=== PATIENT | female | born 1980 | race Caucasian/White ===

== ENCOUNTER 2017-04-13 16:58 | Emergency (ER) | payer SELFPAY ==
[~2017-04-13] VITALS: Ht 185.4 cm; Wt 83.9 kg
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
--- NOTE | ~2017-04-13 | CR230 ---
[facility] A Service of [facility] & [facility] RADIOLOGY TEXT RESULTS PATIENT: HE ERWIN LOCATION: [facility] : 84 UNIT #: [id number] AGE: [address]: Lani Hull SEX: F ORDER DR: [id number] [facility] [address] [place], [place] [address] [id number] E MR#: [id number] Acc #: [id number] NAME: HE ERWIN. : 1980 SEX: F STUDY DATE/TIME: 04/13/2017 17:58 UNIT: [facility] ROOM: STUDY DESCRIPTION: CR Shoulder Min 2 View Rt Attending Physician: Lani Hull P.A.-C. Ordering Physician: Lani Hull P.A.-C. Primary Care Physician: Latanya Chaudhry MEDICAL IMAGING REPORT This report is preliminary unless electronic signature is present EXAM Right shoulder 3 views 04/13/2017 HISTORY Anterior right shoulder pain beginning 1 day ago. No known injury. FINDINGS AP view with internal and external rotation of the shoulder girdle shows satisfactory relationship of the humeral head and glenoid fossa. The joint space is normal. There is no identifiable fracture or dislocation or bony destructive process about the shoulder girdle anatomy. The acromioclavicular joint is normal. There is no radiopaque foreign body in the region. IMPRESSION Normal shoulder. Dictated by... Ben Yi M.D. THIS IS AN ELECTRONICALLY VERIFIED REPORT Ben Yi M.D. at 04/14/2017 2:18 PM SAM/parvez TD: 04/14/2017 07:11 JOB #: [id number] MEDICAL IMAGING REPORT Page 1 of 1 COPY
[~2017-04-13 16:58] MED LIST: ABILIFY10 MG PO; AMOXICILLIN PO; AUGMENTIN PO; AURODEX EAR DRO15 ML OT; BACTRIM DS TABL1 TA1 PO; BENZONATATE PO; CIPRODEX OTIC7.5 ML AD; DICLOFENAC PO; DOXYCYCLINE HY100 M1 PO; DOXYCYCLINE HY100 M2 PO; FLAGYL PO; FLEXERIL PO; HYDROXYZINE HCL50 MG; HYDROXYZINE HCL50 MG PO; IBUPROFEN PO; KLONOPIN0.5 MG PO; LAMICTAL25 MG; LAMICTAL25 MG PO; LEVAQUIN PO; MOTRIN100 MG PO; NICOTINE T1 PATCH .2 TOP; NO MEDICATIONS; NORCO 5/325 TAB1 TAB PO; PERCOCET5/325 PO; PHENERGAN PO; PHENERGAN W/CO120 ML PO; PHENERGAN25 MG PO; TRAMADOL HCL50 M2 PO; VICODIN 5/1 TAB 5/50 PO; VICODIN 5/500 T1 TAB PO; VICODIN PO; VOLTAREN75 MG PO
== END 2017-04-13 19:30 | disposition home or self-care (01) ==
LOC: CED 16:58 → CFTX 16:58
DX: S16.1XXA Strain of muscle, fascia and tendon at neck level, initial encounter (principal); S46.911A Strain of unspecified muscle, fascia and tendon at shoulder and upper arm level, right arm, initial encounter; R51 Headache; F17.210 Nicotine dependence, cigarettes, uncomplicated; Z98.51 Tubal ligation status; Z79.2 Long term (current) use of antibiotics; Z79.899 Other long term (current) drug therapy; Z88.1 Allergy status to other antibiotic agents; Z88.8 Allergy status to other drugs, medicaments and biological substances; V43.62XA Car passenger injured in collision with other type car in traffic accident, initial encounter
CPT/HCPCS: 70450; 72125; 73030; 96372; 99284; J1885